=== PATIENT | male | born 1950 | race Caucasian/White ===

== ENCOUNTER 2024-04-22 01:35 | Emergency (ER) | payer OTHER | END 2024-04-22 02:17 | disposition home or self-care (01) | LOC: BURERS 01:35 | DX: S91.031A Puncture wound without foreign body, right ankle, initial encounter (principal); I48.91 Unspecified atrial fibrillation; E11.9 Type 2 diabetes mellitus without complications; I10 Essential (primary) hypertension; X58.XXXA Exposure to other specified factors, initial encounter; Y93.01 Activity, walking, marching and hiking | CPT/HCPCS: 99283 ==